=== PATIENT | male | born 1985 | race African-American/Black ===

== ENCOUNTER 2022-10-09 03:44 | Emergency (ER) | payer OTHER ==
[2022-10-09 03:49] VITALS: BP 120/76; PULSE 60; RESP 18; TEMP 97.6; BMI 24.2
== END 2022-10-09 05:19 | disposition home or self-care (01) ==
LOC: JER 03:44
DX: L03.315 Cellulitis of perineum (principal)
CPT/HCPCS: 99282-25

== ENCOUNTER 2024-02-26 23:21 | Emergency (ER) | payer OTHER ==
[2024-02-26 23:27] VITALS: BP 122/82; PULSE 88; RESP 18; TEMP 98; BMI 24.3
[2024-02-27] MEDS ORDERED: LIDOCAINE 4% PATCH TP ONE (00:20)
[2024-02-27] MEDS ORDERED: METHOCARBAMOL 500 MG TABLET ONE (00:21)
[2024-02-27] MEDS ORDERED: KETOROLAC TROMETHAMINE 30 MG/1 ML VIAL ONE ×2 (00:21)
[2024-02-27] MEDS: METHOCARBAMOL 500 MG TABLET PO ONE (00:25)
[2024-02-27] MEDS: KETOROLAC TROMETHAMINE 30 MG/1 ML VIAL IM ONE (00:25)
[2024-02-27] MEDS: LIDOCAINE 4% PATCH TP ONE (00:25)
[2024-02-27] MEDS ORDERED: LIDOCAINE PATCH REMOVAL MC ONE (12:00)
== END 2024-02-27 04:09 | disposition home or self-care (01) ==
LOC: JER 23:21
PROC: 3E0133Z Introduction of Anti-inflammatory into Subcutaneous Tissue, Percutaneous Approach (ICD-10-PCS; principal; 2024-02-27)
DX: M25.512 Pain in left shoulder (principal); R20.0 Anesthesia of skin; V43.12XA Car passenger injured in collision with other type car in nontraffic accident, initial encounter
CPT/HCPCS: 70450-TC; 72125-TC; 73030-TC-LT-FY; 99284-25

== ENCOUNTER 2025-04-03 07:21 | Emergency (ER) | payer SELFPAY ==
[2025-04-03 07:36] VITALS: BP 134/84; PULSE 81; RESP 17; TEMP 97.9; BMI 21.9
== END 2025-04-03 09:47 | disposition home or self-care (01) ==
LOC: JERFT 07:21 → JER 07:21 → JERFT 09:47
DX: M79.652 Pain in left thigh (principal)
CPT/HCPCS: 73552-TC-LT-FY; 99283-25